=== PATIENT | female | born 1990 | race Caucasian/White ===

== ENCOUNTER 2019-05-14 14:00 | Emergency (ER) | payer MEDICAID ==
[~2019-05-14] VITALS: Ht 152.4 cm; Wt 68.0 kg
[2019-05-14 14:14] VITALS: BP 124/98
== END 2019-05-14 16:46 | disposition left against medical advice (07) ==
LOC: ER 14:00
DX: Z53.21 Procedure and treatment not carried out due to patient leaving prior to being seen by health care provider (principal)